=== PATIENT | female | born 1940 | race Caucasian/White ===

== ENCOUNTER 2018-02-02 13:58 | Outpatient (CLI) | payer MEDICARE, BC, MEDICAID | END 2018-02-02 23:59 | disposition home or self-care (01) | LOC: RAD 13:58 | PROVIDERS: ATTEND Family Medicine | DX: R13.12 Dysphagia, oropharyngeal phase (principal); K21.9 Gastro-esophageal reflux disease without esophagitis | CPT/HCPCS: 74230 ==

== ENCOUNTER 2019-05-18 13:40 | Day surgery (SDC) | payer MEDICARE, BC, MEDICAID ==
[2019-05-17 11:14] LABS: BASOPHILS # (AUTO) 0.1 X10'3 (0-0.2); BASOPHILS % (AUTO) 0.9 % (0-1); EOSINOPHILS # (AUTO) 0.2 X10'3 (0-0.9); EOSINOPHILS % (AUTO) 3.1 % (0-6); LYMPHOCYTES # (AUTO) 0.9 X10'3 (1.1-4.8); LYMPHOCYTES % (AUTO) 15.5 % (21-51); MEAN CORPUSCULAR HEMOGLOBIN 31.3 PG (27.0-31.0); MEAN CORPUSCULAR HGB CONC 33.1 g/dL (33.0-36.5); MEAN CORPUSCULAR VOLUME 94.3 FL (78-98); MEAN PLATELET VOLUME 9.2 FL (7.4-10.4); MONOCYTES # (AUTO) 0.3 X10'3 (0-0.9); MONOCYTES % (AUTO) 5.8 % (2-12); NEUTROPHILS # (AUTO) 4.3 X10'3 (1.8-7.7); NEUTROPHILS % (AUTO) 74.7 % (42-75); PRE OP HEMATOCRIT 40.7 % (35.0-45.0); PRE OP HEMOGLOBIN 13.5 g/dL (12.0-16.0); PRE OP PLATELET COUNT 281 X10'3 (140-440); RED BLOOD COUNT 4.31 X10'6 (4.20-5.60); RED CELL DISTRIBUTION WIDTH 14.4 % (11.5-14.5)
[2019-05-17 11:27] LABS: ALBUMIN 3.5 G/DL (3.4-5.0); ALBUMIN/GLOBULIN RATIO 0.8 (1.1-1.5); ALKALINE PHOSPHATASE 107 IU/L (46-116); BLOOD UREA NITROGEN 13 MG/DL (7-18); BUN/CREATININE RATIO 14.8 (6.6-38.0); CALCIUM 8.8 MG/DL (8.5-10.1); CHLORIDE 107 MMOL/L (99-107); CREATININE 0.88 MG/DL (0.40-0.90); PRE OP ALT 27 U/L (30-65); PRE OP ANION GAP 6 (8-16); PRE OP AST 19 U/L (10-37); PRE OP BILIRUB, TOTAL 0.6 MG/DL (0.0-1.0); PRE OP GLUCOSE 85 MG/DL (70-104); PRE OP POTASSIUM 3.7 MMOL/L (3.4-5.1); PRE OP SODIUM 142 MMOL/L (135-145); TOTAL CARBON DIOXIDE 28.8 MMOL/L (24-32); TOTAL PROTEIN 7.9 G/DL (6.4-8.2); eGFR 62 ML/MIN
[2019-05-18] VITALS (8 sets, daily range): BP systolic 133–164; BP diastolic 70–85
[~2019-05-18] VITALS: Ht 170.2 cm; Wt 62.0 kg
[~2019-05-18 13:40] MED LIST: ACET-2119 PO; ALBU8.5H8 INH; CALC500T11 PO; FLUT16SP2 BOTHNARES; VANCOMYCIN INJ 1000 MG in NORMAL SALINE 250ml IV.SOLN IV ONE; albuterol 2.5 MG/3 ML nebule NEB ONE; cefazolin/dext.iso 2gm/50ml 50 ML IV ONE; famotidine 20mg tablet PO ONE; ringers solution, lacted 1,000 ML IV SCH
[2019-05-18] MEDS ORDERED: BUPIVAcaine/PF 2.5 mg/ml (0.25%) 30ml vial ONE (15:03)
[2019-05-18] MEDS ORDERED: midazolam 2 mg/2 ml injection ONE (16:37)
[2019-05-18] MEDS ORDERED: propofol inj 20 ML IV ONE (16:37)
[2019-05-18] MEDS ORDERED: fentaNYL/PF 50MCG/1 ML 2ML syringe ONE (16:37)
[2019-05-18] MEDS ORDERED: ondansetron/PF 4mg/2ml inj ONE (16:41)
[2019-05-18] MEDS ORDERED: dexamethasone sod phosphate 10mg/ml inj ONE (16:41)
[2019-05-18] MEDS ORDERED: sevoflurane 250ml liquid IH ONE (16:41)
[2019-05-18] MEDS ORDERED: ROPIVAcaine 0.5% (5mg/ml) 30ml vial ONE (16:43)
--- NOTE | 2019-05-18 17:50 | NUR ---
Received from OR via BED , accompanied by Anesthesiologist DR TSANG and report given by Anesthesiolgist. PATIENT WAKING UP, DENIES PAIN, V/S WNL, NEUROVASCULAR CHECKS INTACT, 20G PIV LUE , DRESSING TO LEFT FOOT CDI WITH WALKING SANDLE ON.
--- NOTE | 2019-05-18 18:50 | NUR ---
PATIENT A&OX4, DENIES PAIN, V/S WNL, NEUROVASCULAR CHECKS INTACT, 20G PIV LUE D/C , DRESSING TO LEFT FOOT CDI WITH WALKING SANDLE ON. I HAVE REVIEWED D/C INSTRUCTIONS WITH PATIENT SHE HAS VERBALIZED UNDERSTANDING. PATIENT D/C HOME WITH ALL BELONGINGS AND [facility] GAVE TRANSPORT HOME.
== END 2019-05-18 18:50 | disposition home or self-care (01) ==
LOC: PAS 13:40
PROVIDERS: ATTEND Orthopaedic Surgery
DX: M20.42 Other hammer toe(s) (acquired), left foot (principal); K21.9 Gastro-esophageal reflux disease without esophagitis; M81.0 Age-related osteoporosis without current pathological fracture; M17.0 Bilateral primary osteoarthritis of knee; I10 Essential (primary) hypertension; M19.072 Primary osteoarthritis, left ankle and foot; J45.909 Unspecified asthma, uncomplicated; Z88.8 Allergy status to other drugs, medicaments and biological substances; Z88.2 Allergy status to sulfonamides; Z88.5 Allergy status to narcotic agent; Z91.09 Other allergy status, other than to drugs and biological substances; G89.18 Other acute postprocedural pain; Z90.710 Acquired absence of both cervix and uterus; Z98.890 Other specified postprocedural states; Z98.41 Cataract extraction status, right eye; Z98.42 Cataract extraction status, left eye; Z79.899 Other long term (current) drug therapy
CPT/HCPCS: 28285; 36415; 64450; 80053; 82948; 85025; 93005; A6222; C1713; J1100; J2250; J2405; J2704; J3010; J3370; J3490; L3260; A4215; A4618; A6449; J2795; J7120

== ENCOUNTER 2019-05-20 15:27 | Emergency (ER) | payer MEDICARE, BC, MEDICAID ==
[~2019-05-20] VITALS: Ht 170.2 cm; Wt 63.0 kg
[~2019-05-20 15:27] MED LIST changes: -VANCOMYCIN INJ 1000 MG in NORMAL SALINE 250ml IV.SOLN IV ONE; -albuterol 2.5 MG/3 ML nebule NEB ONE; -cefazolin/dext.iso 2gm/50ml 50 ML IV ONE; -famotidine 20mg tablet PO ONE; -ringers solution, lacted 1,000 ML IV SCH
[2019-05-20 15:29] VITALS: BP 165/105
== END 2019-05-20 18:09 | disposition home or self-care (01) ==
LOC: ER 15:28
DX: G89.18 Other acute postprocedural pain (principal); J45.909 Unspecified asthma, uncomplicated; Z48.01 Encounter for change or removal of surgical wound dressing; Z88.6 Allergy status to analgesic agent; Z88.2 Allergy status to sulfonamides; Z79.899 Other long term (current) drug therapy; Z98.890 Other specified postprocedural states
CPT/HCPCS: 99283

== ENCOUNTER 2020-11-27 13:28 | Emergency (ER) | payer OTHER, MEDICAID ==
[~2020-11-27] VITALS: Ht 172.7 cm; Wt 68.8 kg
[2020-11-27 14:00] VITALS: BP 127/70
[2020-11-27] MEDS ORDERED: AZIT500T9 PO (15:50)
[2020-11-27] MEDS ORDERED: ALB0.5UD IH (16:08)
== END 2020-11-27 16:41 | disposition home or self-care (01) ==
LOC: ER 13:29
DX: J40 Bronchitis, not specified as acute or chronic (principal); R05 Cough; J43.9 Emphysema, unspecified; Z98.890 Other specified postprocedural states; Z88.2 Allergy status to sulfonamides; Z88.6 Allergy status to analgesic agent; Z88.5 Allergy status to narcotic agent; Z88.8 Allergy status to other drugs, medicaments and biological substances; Z79.2 Long term (current) use of antibiotics
CPT/HCPCS: 71046; 99283

== ENCOUNTER 2021-07-08 14:34 | Emergency (ER) | payer BC, MEDICAID ==
[~2021-07-08] VITALS: Ht 170.2 cm; Wt 65.9 kg
[~2021-07-08 14:34] MED LIST changes: +ALBU8.5H17 INH; -ALBU8.5H8 INH; +AZIT500T9 PO
[2021-07-08 14:54] VITALS: BP 160/87
[2021-07-08] MEDS ORDERED: PRED20TA PO (14:55)
[2021-07-08] MEDS ORDERED: AMOX-422 PO (14:55)
== END 2021-07-08 15:32 | disposition home or self-care (01) ==
LOC: ER 14:35
DX: J02.9 Acute pharyngitis, unspecified (principal); J43.9 Emphysema, unspecified; Z87.81 Personal history of (healed) traumatic fracture; Z98.890 Other specified postprocedural states; Z88.2 Allergy status to sulfonamides; Z88.5 Allergy status to narcotic agent; Z88.8 Allergy status to other drugs, medicaments and biological substances; Z79.2 Long term (current) use of antibiotics; Z79.899 Other long term (current) drug therapy
CPT/HCPCS: 87081; 87880; 99283

== ENCOUNTER 2022-02-05 06:57 | Day surgery (SDC) | payer BC, MEDICAID ==
[~2022-02-05] VITALS: Ht 167.6 cm; Wt 71.8 kg
[2022-02-05 07:45] VITALS: BP 146/83
[2022-02-05] MEDS ORDERED: CYAN10007 IM (08:20)
[2022-02-05] MEDS ORDERED: Vitamin B6 (08:28)
[2022-02-05] MEDS ORDERED: ASCO500C18 PO (08:28)
[2022-02-05] MEDS ORDERED: Vitamin D (08:28)
[2022-02-05] MEDS ORDERED: LIDOcaine 1%/PF 5ML 10 MG/ML VIAL SQ ONE (09:30)
[2022-02-05 10:32] VITALS: BP 155/88
== END 2022-02-05 10:35 | disposition home or self-care (01) ==
LOC: SSTAY O 06:57
PROVIDERS: ATTEND Family Medicine
DX: E04.2 Nontoxic multinodular goiter (principal); I10 Essential (primary) hypertension; J45.909 Unspecified asthma, uncomplicated; Z88.8 Allergy status to other drugs, medicaments and biological substances; Z88.2 Allergy status to sulfonamides; Z88.5 Allergy status to narcotic agent; Z79.899 Other long term (current) drug therapy; Z98.890 Other specified postprocedural states
CPT/HCPCS: 10005; 60100; 76942

== ENCOUNTER 2022-04-23 15:07 | Emergency (ER) | payer BC, MEDICAID ==
[~2022-04-23] VITALS: Ht 167.6 cm; Wt 65.9 kg
[~2022-04-23 15:07] MED LIST changes: -ACET-2119 PO; +ASCO500C18 PO; -AZIT500T9 PO; +CYAN10007 IM; -FLUT16SP2 BOTHNARES; +Vitamin B6; +Vitamin D
[2022-04-23 16:11] VITALS: BP 174/69
[2022-04-23] MEDS ORDERED: AZIT500T3 PO ×3 (17:06→17:36)
== END 2022-04-23 17:35 | disposition home or self-care (01) ==
LOC: ER 15:08
DX: J40 Bronchitis, not specified as acute or chronic (principal); J06.9 Acute upper respiratory infection, unspecified; J43.9 Emphysema, unspecified; Z87.81 Personal history of (healed) traumatic fracture; Z88.6 Allergy status to analgesic agent; Z88.2 Allergy status to sulfonamides; Z79.899 Other long term (current) drug therapy; Z88.5 Allergy status to narcotic agent; Z79.1 Long term (current) use of non-steroidal anti-inflammatories (NSAID); Z79.2 Long term (current) use of antibiotics
CPT/HCPCS: 99283

== ENCOUNTER 2022-10-18 14:40 | Emergency (ER) | payer BC, MEDICAID ==
[~2022-10-18] VITALS: Ht 170.2 cm; Wt 68.0 kg
[2022-10-18 15:01] VITALS: BP 168/64
[2022-10-18] MEDS ORDERED: acetaminophen 325mg tablet PO ONE ×2 (18:10→18:25)
--- NOTE | 2022-10-18 18:23 | NUR ---
ONE TYLENOL 325MG DROPPED AND WASTED. NEW ORDER FOR ANOTHER TYLENOL 325MG
== END 2022-10-18 18:53 | disposition home or self-care (01) ==
LOC: ER 14:40
DX: M25.561 Pain in right knee (principal); M25.461 Effusion, right knee; J43.9 Emphysema, unspecified; Z88.6 Allergy status to analgesic agent; Z88.2 Allergy status to sulfonamides; Z79.899 Other long term (current) drug therapy; Z88.5 Allergy status to narcotic agent
CPT/HCPCS: 73564; 99283; A6449

== ENCOUNTER 2023-08-10 11:10 | Emergency (ER) | payer BC, MEDICAID ==
[~2023-08-10] VITALS: Ht 167.6 cm; Wt 66.8 kg
[2023-08-10] MEDS ORDERED: oxyCODONE/APAP 5-325mg tablet PO ONE (14:10)
[2023-08-10] MEDS ORDERED: predniSONE 20 mg tablet PO ONE (14:10)
[2023-08-10] MEDS ORDERED: OXYC-145 PO (14:11)
[2023-08-10] MEDS ORDERED: PRED20TA PO (14:11)
[2023-08-10 14:57] VITALS: BP 202/84; PULSE 80; RESP 14; TEMP 98.4; O2SAT 99
== END 2023-08-10 14:40 | disposition home or self-care (01) ==
LOC: ER 11:10
DX: M54.50 Low back pain, unspecified (principal); M25.552 Pain in left hip; M25.562 Pain in left knee; J43.9 Emphysema, unspecified; M81.0 Age-related osteoporosis without current pathological fracture; Z87.81 Personal history of (healed) traumatic fracture; Z88.2 Allergy status to sulfonamides; Z88.5 Allergy status to narcotic agent; Z79.899 Other long term (current) drug therapy
CPT/HCPCS: 73502; 73564; 99284; J7512

== ENCOUNTER 2024-03-28 09:50 | Outpatient (CLI) | payer BC, MEDICAID ==
[~2024-03-28 09:50] MED LIST changes: +OXYC-145 PO
== END 2024-03-28 23:59 | disposition home or self-care (01) ==
LOC: RAD 09:50
PROVIDERS: ATTEND Nurse Practitioner
DX: E04.9 Nontoxic goiter, unspecified (principal)
CPT/HCPCS: 76536

== ENCOUNTER 2024-06-07 13:27 | Day surgery (SDC) | payer BC, MEDICAID ==
[2024-06-07] MEDS ORDERED: OXYC5TAB2 PO (14:12)
[2024-06-07 15:35] VITALS: RESP 15; O2SAT 96
[2024-06-07 16:50] VITALS: BP 178/70; PULSE 79; RESP 17; TEMP 98; O2SAT 98
[2024-06-07 17:15] VITALS: BP 180/75; PULSE 70; RESP 15; O2SAT 98
[2024-06-07 17:30] VITALS: BP 178/68; PULSE 71; RESP 12; O2SAT 99
[2024-06-07 17:45] VITALS: BP 169/66; PULSE 74; RESP 13; O2SAT 98
[2024-06-07 18:24] VITALS: BP 169/76; PULSE 73; RESP 15; O2SAT 98
== END 2024-06-07 18:10 | disposition home or self-care (01) ==
LOC: SSTAY O 13:27
PROVIDERS: ATTEND Nurse Practitioner
DX: E04.2 Nontoxic multinodular goiter (principal); Z88.6 Allergy status to analgesic agent
CPT/HCPCS: 10005

== ENCOUNTER 2024-07-03 15:39 | Outpatient (CLI) | payer BC, MEDICAID ==
[~2024-07-03 15:39] MED LIST changes: -ASCO500C18 PO; -CALC500T11 PO; -CYAN10007 IM; -OXYC-145 PO; +OXYC5TAB2 PO; -Vitamin B6; -Vitamin D
== END 2024-07-03 23:59 | disposition home or self-care (01) ==
LOC: MRI02 15:39
PROVIDERS: ATTEND Nurse Practitioner
DX: M22.42 Chondromalacia patellae, left knee (principal); M25.462 Effusion, left knee; M25.562 Pain in left knee
CPT/HCPCS: 73721